=== PATIENT | male | born 1970 | race Caucasian/White ===

== ENCOUNTER 2022-06-14 15:39 | Emergency (ER) | payer OTHER ==
[2022-06-14] MEDS: methylPREDNISolone Sodium Succinate 125 MG/2 ML SDV IM ONE (16:19)
[2022-06-14] MEDS: Ketorolac 30 MG/ML SDV IM ONE (16:21)
== END 2022-06-14 16:35 | disposition home or self-care (01) ==
LOC: VM.ED 15:39
DX: M54.16 Radiculopathy, lumbar region (principal); Z88.0 Allergy status to penicillin
CPT/HCPCS: 96372; 99283; J1885; J2930